=== PATIENT | female | born 1990 | race Caucasian/White ===

== ENCOUNTER 2017-03-27 13:26 | Emergency (ER) | payer OTHER ==
[2017-03-27 13:49] VITALS: O2SAT 97
--- NOTE | 2017-03-27 14:28 | ERPHSYRPT ---
- History of Present Illness Time Seen by Provider: 03/27/17 14:23 Source: patient Exam Limitations: no limitations Patient Subjective Stated Complaint: Pt states she woke up this morning and her right hand/wrist was swollen. Triage Nursing Assessment: Pt alert and oriented x3. skin pink warm and dry. afebrile. swelling, redness and warmth in the right hand to the right forearm. no obvious deformities noted Physician History: The patient is a 26-year-old right-handed female who woke up this morning with mild swelling and redness of her right hand wrist and forearm. She does not remember any injury. It did not hurt initially. Her wrist is now beginning to be mildly sore. She denies fever or chills. She does not take any medicines. She is not allergic to any medicines. She would like an antibiotic. Occurred: this morning Method of Injury: unknown Quality: aching Severity of Pain-Max: mild Severity of Pain-Current: mild Extremities Pain Location: forearm: right, wrist: right, hand: right Modifying Factors: Improves With: nothing Associated Symptoms: none Allergies/Adverse Reactions: No Known Drug Allergies Allergy (Unverified 03/27/17 13:44) Hx Tetanus, Diphtheria Vaccination/Date Given: Yes Hx Influenza Vaccination/Date Given: No Hx Pneumococcal Vaccination/Date Given: No - Review of Systems Constitutional: No Fever, No Chills Eyes: No Symptoms Ears, Nose, & Throat: No Symptoms Respiratory: No Cough, No Dyspnea Cardiac: No Chest Pain, No Edema, No Syncope Abdominal/Gastrointestinal: No Abdominal Pain, No Nausea, No Vomiting, No Diarrhea Genitourinary Symptoms: No Dysuria Musculoskeletal: No Back Pain, No Neck Pain Skin: Rash Neurological: No Dizziness, No Focal Weakness, No Sensory Changes Psychological: No Symptoms Endocrine: No Symptoms Hematologic/Lymphatic: No Symptoms Immunological/Allergic: No Symptoms All Other Systems: Reviewed and Negative - Past Medical History Pertinent Past Medical History: Yes Psycho-Social History: Depression - Past Surgical History Past Surgical History: Yes Female Surgical History: Tubal Ligation - Social History Smoking Status: Current every day smoker Drug Use: none Patient Lives Alone: No - Female History Hx Last Menstrual Period: 03/25/2017 - Nursing Vital Signs Nursing Vital Signs: Initial Vital Signs Temperature 98.0 F 03/27/17 13:44 Pulse Rate 75 03/27/17 13:44 Respiratory Rate 16 03/27/17 13:44 Blood Pressure 107/67 03/27/17 13:44 O2 Sat by Pulse Oximetry 97 03/27/17 13:44 Pain Scale Pain Intensity 7 - Physical Exam General Appearance: alert Eyes, Ears, Nose, Throat Exam: moist mucous membranes Neck Exam: non-tender, supple Cardiovascular/Respiratory Exam: chest non-tender, normal breath sounds, regular rate/rhythm, no respiratory distress Abdominal Exam: non-tender, No guarding Back Exam: normal inspection, No vertebral tenderness Shoulder Exam: normal inspection Elbow/Forearm Exam: swelling (distal forearm) Wrist Exam: swelling (right) Hand Exam: swelling Neuro/Tendon Exam: normal sensation, normal motor functions Mental Status Exam: alert, oriented x 3, cooperative Skin Exam: rash (right hand, wrist, distal forearm) SpO2 Interpretation: normal SpO2: 97 Oxygen Delivery: Room Air - Progress Progress: unchanged Progress Note: 03/27/17 14:31 Pt wants antibiotic. Counseled pt/family regarding: diagnosis - Departure Time of Disposition: 14:31 Departure Disposition: Home Clinical Impression: Cellulitis Condition: Stable Critical Care Time: No Referrals: DOCTOR,NO FAMILY [Primary Care Provider] - Additional Instructions: You have cellulitis of your right hand, wrist, and forearm. Take clindamycin 300 mg 4 times a day for 10 days. If no improvement within 1-2 days, follow-up with your local physician. Prescriptions: Clindamycin HCl 1 cap PO QID #40 capsule
[2017-03-27 14:56] VITALS: BP 93/66; PULSE 78
== END 2017-03-27 14:56 | disposition home or self-care (01) ==
LOC: ED 13:26
DX: L03.90 Cellulitis, unspecified (principal)
CPT/HCPCS: 99283

== ENCOUNTER 2017-04-05 16:45 | Emergency (ER) | payer OTHER ==
[2017-04-05 16:56] VITALS: O2SAT 99
[2017-04-05 17:25] LABS: BASOPHIL % 0.3 % (0.0-0.4); Eosinophil % 8.2 % (0.00-5.0); Granulocytes % 64.4 % (36.0-66.0); Lymphocytes % 14.9 % (24.0-44.0); Mean Cell Volume 92.9 fl (78-100); Mean Corpuscular Hemoglobin 29.3 pg (26-32); Mean Platelet Volume 10.7 fl (6-9.5); Monocytes % 12.2 % (0.0-12.0); Platelet Count 272 K/mm3 (150-450); Red Blood Count 4.09 M/mm3 (4.1-5.4); Red Cell Distribution Width 13.7 % (11.5-14.0); White Blood Count 7.8 K/mm3 (4.0-10.5)
[2017-04-05 17:49] LABS: ALBUMIN 3.5 g/dL (3.4-5.0); ALKALINE PHOSPHATASE 70 U/L (46-116); ANION GAP 13.8 MEQ/L (5-15); BLOOD UREA NITROGEN 17 mg/dL (9-20); CHLORIDE 109 mEq/L (98-107); ETHYL ALCOHOL < 0.010 % (0.00-0.01); Glucose 109 MG/DL (70-110); Potassium 4.1 mEq/L (3.5-5.1); SGOT/AST 9 U/L (15-37); SGPT/ALT 11 U/L (12-78); SODIUM 145 mEq/L (136-145); Total Protein 7.3 gm/dL (6.4-8.2)
[2017-04-05 17:50] LABS: ACETAMINOPHEN < 2.0 ug/ml (10-30)
[2017-04-05 18:02] VITALS: BP 104/57; PULSE 69
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
== END 2017-04-05 18:27 | disposition home or self-care (01) ==
LOC: ED 16:45
DX: Z87.898 Personal history of other specified conditions (principal)
CPT/HCPCS: 36415; 80053; 80307; 84703; 85025; 99283; 99284; G0481